=== PATIENT | female | born 1960 | race Caucasian/White ===

== ENCOUNTER 2023-03-09 17:33 | Emergency (ER) | payer BC, SELFPAY ==
[2023-03-09] VITALS (7 sets, daily range): BP systolic 168–196; BP diastolic 69–96; PULSE 94–100; RESP 18–20; TEMP 36.7–36.9; O2SAT 94–98; BMI 31.7
--- NOTE | 2023-03-09 17:23 | HMH.EDGENADL ---
Discharge Plan Disposition Patient Disposition: Home, Self-Care Condition: Good Prescriptions Prescriptions: New tramadol 50 mg tablet 50 mg PO Q8H PRN (Reason: pain) Qty: 9 0RF prednisone 20 mg tablet 40 mg PO DAILY 5 Days Qty: 10 0RF lidocaine 5 % adhesive patch,medicated 1 patch topical DAILY Qty: 30 0RF Rx Instructions: leave on most painful area for up to 12 hrs No Action atorvastatin 80 mg tablet 80 mg PO DAILY carvedilol 12.5 mg tablet 12.5 mg PO BID glipizide 10 mg tablet extended release 24hr 10 mg PO BID promethazine 25 mg tablet See Rx Instructions .ROUTE .COMPLEX Rx Instructions: 25 mg orally losartan 25 mg tablet 25 mg PO DAILY folic acid 1 mg tablet 1 mg PO DAILY Activity Restrictions/Add. Instructions Additional Instructions/Restrictions: Follow-up with your PCP as soon as possible for further evaluation and diagnostics. I recommend physical therapy for a week I will put you off work for 3 days to start. Clinical Impressions Clinical Impression: Sciatica neuralgia Stand Alone Forms Stand Alone Forms: Work/School Release Discharge ED Provider: Hans Millard General Adult HPI <JACK Guidry - Last Filed: 03/09/23 22:31> General Chief complaint: PAIN Stated complaint: Left Leg Pain Time Seen by Provider: 03/09/23 17:23 History of Present Illness HPI narrative: She reports acute onset around proximately 1530 of left gluteal pain that is now involving the entirety of her left lower extremity. Patient injured her back in December with similar symptoms however it is worse today. Patient denies any trauma and occurred when attempting to sit down after a long day at work. 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 Patient denies chest pain shortness of breath fever chills hemoptysis hematochezia melena nausea vomit diarrhea saddle anesthesia loss of bowel or bladder function. Patient reports pain initially to the lower back pain radiation down the left leg. Related Data Home Medications Medication Instructions Recorded Confirmed atorvastatin 80 mg tablet 80 mg PO DAILY 03/09/23 03/09/23 carvedilol 12.5 mg tablet 12.5 mg PO BID 03/09/23 03/09/23 folic acid 1 mg tablet 1 mg PO DAILY 03/09/23 03/09/23 glipizide 10 mg tablet, extended 10 mg PO BID 03/09/23 03/09/23 release 24 hr losartan 25 mg tablet 25 mg PO DAILY 03/09/23 03/09/23 promethazine 25 mg tablet See Rx Instructions .Route .COMPLEX 03/09/23 03/09/23 Previous Rx's Medication Instructions Recorded lidocaine 5 % topical patch 1 patch topical DAILY #30 ea 03/09/23 prednisone 20 mg tablet 40 mg PO DAILY 5 days #10 tabs 03/09/23 tramadol 50 mg tablet 50 mg PO Q8H PRN pain #9 tabs 03/09/23 Allergies Allergy/AdvReac Type Severity Reaction Status Date / Time hydrocodone Allergy Verified 03/09/23 17:56 PFSH <JACK Guidry - Last Filed: 03/09/23 22:31> PFS Disclaimer: The information contained in this section may have been updated after the patient was seen, as this information can be updated by other users. Social History (Updated 03/09/23 @ 22:31 by JACK Guidry) Smoking Status: Current every day smoker alcohol intake: never current occupational status: employed Travel in the last 8 weeks: None <JACK Guidry - Last Filed: 03/09/23 22:31> ROS Obtained: Yes Systems reviewed as appropriate & no additional complaints except as documented Physical Exam <JACK Guidry - Last Filed: 03/09/23 22:31> General General appearance: alert and in no apparent distress Comment: Patient is well-nourished well-developed 63-year-old female who otherwise in no acute distress Head Head exam: atraumatic, normocephalic and normal inspection Eye Eye exam: Present normal appearance, PERRL and EOMI ENT ENT exam: Present normal exam, normal oropharynx and mucous membranes moist Neck Neck exam: Present normal inspection, full ROM and trachea midline Chest Chest inspection: Present normal inspection and symmetric chest wall rise; Absent tenderness Respiratory Respiratory exam: Present normal lung sounds bilaterally; Absent respiratory distress Cardiovascular Cardiovascular exam: Present regular rate and normal rhythm; Absent JVD Abdominal Exam Abdominal exam: Present soft and normal bowel sounds; Absent distention, tenderness or guarding Extremities Exam Extremities exam: Present normal inspection, full ROM (Of the unaffected extremities) and normal capillary refill; Absent calf tenderness Expanded Lower Extremity Exam Left: Hip/Pelvis exam: Present pelvis stable, pain on hip/pelvis palpation and hip pain on leg movement; Absent full ROM, tenderness, swelling, ecchymosis, deformity, dislocation, external rotation, internal rotation, shortening of leg, erythema, crepitus, laceration or abrasion Upper leg exam: Present normal inspection and tenderness (Posteriorly); Absent full ROM, swelling, abrasion, laceration, ecchymosis, deformity, crepitus, dislocation or erythema Leg image: 1. Knee exam: Present normal inspection and tenderness (Posteriorly); Absent full ROM, swelling, abrasion, laceration, ecchymosis, deformity, crepitus, dislocation, erythema, effusion, anterior drawer sign, posterior draw sign, pain with valgus, laxity with valgus, pain with varus, laxity with varus or knee extension intact (Too painful to extend) Lower leg exam: Present normal inspection, full ROM and Achilles tendon intact; Absent tenderness, swelling, abrasion, laceration, ecchymosis, deformity, crepitus, dislocation, erythema, palpable cord or Homans' sign Ankle exam: Present normal inspection and full ROM; Absent tenderness, swelling, abrasion, laceration, ecchymosis, deformity, crepitus, dislocation, erythema, tenderness over talofibular lig or anterior draw sign Foot/toe exam: Present normal inspection and full ROM Neurovascular/Tendon exam: Present normal capillary refill and normal fine/light touch; Absent pulse deficit, motor deficit, sensory deficit, tendon deficit, foot drop or significant pain with passive ROM of distal joint Gait: not tested/not observed Back Exam Back exam: Present normal inspection; Absent tenderness Neurological Exam Neurological exam: Present alert and oriented X3 Psychiatric Psychiatric exam: Present normal affect and normal mood Skin Skin exam: Present warm, dry, intact and normal color Medical Decision Making <JACK Guidry - Last Filed: 03/09/23 22:31> Medical Records Medical records reviewed: Yes I reviewed the patient's medical records. Domingo Inquiry Pt receiving controlled substance: No Domingo was queried for this patient: No Vital Signs: 03/09/23 17:30 03/09/23 18:00 03/09/23 18:21 Temperature 98.1 F Temperature Source Oral Pulse Rate 96 H 99 H Pulse Rate [Right] 96 H Respiratory Rate 18 20 20 Blood Pressure 182/84 H 196/87 H Blood Pressure [Right Arm] 168/69 H Blood Pressure Mean 134 123 Blood Pressure Mean [Right Arm] 102 Blood Pressure Source Blood Pressure Position 02 Sat by Pulse Oximetry 98 95 96 Oxygen Delivery Method Room Air 03/09/23 18:41 03/09/23 19:01 03/09/23 19:21 Temperature Temperature Source Pulse Rate 94 H 96 H 94 H Pulse Rate [Right] Respiratory Rate Blood Pressure 190/95 H 193/96 H 182/96 H Blood Pressure [Right Arm] Blood Pressure Mean Blood Pressure Mean [Right Arm] Blood Pressure Source Blood Pressure Position 02 Sat by Pulse Oximetry 95 94 L 96 Oxygen Delivery Method 03/09/23 19:53 Temperature 98.4 F Temperature Source Oral Pulse Rate 100 H Pulse Rate [Right] Respiratory Rate 20 Blood Pressure 182/96 H Blood Pressure [Right Arm] Blood Pressure Mean Blood Pressure Mean [Right Arm] Blood Pressure Source Automatic Cuff Blood Pressure Position Sitting 02 Sat by Pulse Oximetry Oxygen Delivery Method Room Air Lab Data Lab results reviewed: Yes I reviewed the patient's lab results. Orders (Tests/Meds): ED MEDICATIONS Discontinued Medications Generic Name Dose Route Start Last Admin Trade Name Freq PRN Reason Stop Dose Admin Dexamethasone Sodium Phosphate 10 mg 03/09/23 17:36 03/09/23 18:20 Dexamethasone 4mg/Ml 1ml Vial IM 03/09/23 17:37 10 mg ONCE ONE Administration Ketorolac Tromethamine 15 mg 03/09/23 17:31 03/09/23 18:20 Ketorolac 30mg/Ml Vial IM 03/09/23 17:32 15 mg ONCE ONE Administration Lidocaine 1 each 03/09/23 17:31 03/09/23 18:20 Lidocaine 5% Transdermal Patch TP 03/09/23 17:32 1 each ONCE ONE Administration Oxycodone HCl 5 mg 03/09/23 19:43 03/09/23 19:46 Oxycodone 5mg Immediate Release Tablet PO 03/09/23 19:44 5 mg ONCE ONE Administration Medical Decision Narrative: In summary patient is a 83-year-old female who presents to the emergency department for evaluation of left leg radiculopathy.. Patient is hemodynamic stable and afebrile on arrival. Physical exam consistent with sciatica without focal neurologic deficits. Differential diagnosis includes sciatica, degenerative disc disease. Initial workup will be conducted with steroids and nonsteroidals and lidocaine patch. Initial interventions include IM Toradol and IM Decadron and lidocaine patch. Patient already has established physical therapy and will be referred back for ongoing care. Upon repeat evaluation patient has had interval decrease in her numbness and is now able to sit on the edge of the bed comfortably but does still have some sciatica spasm. Given this discharged home with a prednisone burst dose prescription, prescription for tramadol and instructions to follow-up with PCP and PT tomorrow <Hans Millard MD - Last Filed: 03/09/23 23:52> Vital Signs: 03/09/23 17:30 03/09/23 18:00 03/09/23 18:21 Temperature 98.1 F Temperature Source Oral Pulse Rate 96 H 99 H Pulse Rate [Right] 96 H Respiratory Rate 18 20 20 Blood Pressure 182/84 H 196/87 H Blood Pressure [Right Arm] 168/69 H Blood Pressure Mean 134 123 Blood Pressure Mean [Right Arm] 102 Blood Pressure Source Blood Pressure Position 02 Sat by Pulse Oximetry 98 95 96 Oxygen Delivery Method Room Air 03/09/23 18:41 03/09/23 19:01 03/09/23 19:21 Temperature Temperature Source Pulse Rate 94 H 96 H 94 H Pulse Rate [Right] Respiratory Rate Blood Pressure 190/95 H 193/96 H 182/96 H Blood Pressure [Right Arm] Blood Pressure Mean Blood Pressure Mean [Right Arm] Blood Pressure Source Blood Pressure Position 02 Sat by Pulse Oximetry 95 94 L 96 Oxygen Delivery Method 03/09/23 19:53 Temperature 98.4 F Temperature Source Oral Pulse Rate 100 H Pulse Rate [Right] Respiratory Rate 20 Blood Pressure 182/96 H Blood Pressure [Right Arm] Blood Pressure Mean Blood Pressure Mean [Right Arm] Blood Pressure Source Automatic Cuff Blood Pressure Position Sitting 02 Sat by Pulse Oximetry Oxygen Delivery Method Room Air Orders (Tests/Meds): ED MEDICATIONS Discontinued Medications Generic Name Dose Route Start Last Admin Trade Name Rafaela PRN Reason Stop Dose Admin Dexamethasone Sodium Phosphate 10 mg 03/09/23 17:36 03/09/23 18:20 Dexamethasone 4mg/Ml 1ml Vial IM 03/09/23 17:37 10 mg ONCE ONE Administration Ketorolac Tromethamine 15 mg 03/09/23 17:31 03/09/23 18:20 Ketorolac 30mg/Ml Vial IM 03/09/23 17:32 15 mg ONCE ONE Administration Lidocaine 1 each 03/09/23 17:31 03/09/23 18:20 Lidocaine 5% Transdermal Patch TP 03/09/23 17:32 1 each ONCE ONE Administration Oxycodone HCl 5 mg 03/09/23 19:43 03/09/23 19:46 Oxycodone 5mg Immediate Release Tablet PO 03/09/23 19:44 5 mg ONCE ONE Administration Medical Decision Narrative: In summary patient is a 83-year-old female who presents to the emergency department for evaluation of left leg radiculopathy.. Patient is hemodynamic stable and afebrile on arrival. Physical exam consistent with sciatica without focal neurologic deficits. Differential diagnosis includes sciatica, degenerative disc disease. Initial workup will be conducted with steroids and nonsteroidals and lidocaine patch. Initial interventions include IM Toradol and IM Decadron and lidocaine patch. Patient already has established physical therapy and will be referred back for ongoing care. Upon repeat evaluation patient has had interval decrease in her numbness and is now able to sit on the edge of the bed comfortably but does still have some sciatica spasm. Given this discharged home with a prednisone burst dose prescription, prescription for tramadol and instructions to follow-up with PCP and PT tomorrow [place]: Given patient's severe symptoms and inability to sit still, get comfortable despite steroids and lidocaine patch, oxycodone given here in the emergency department 1 dose to prevent admission. And patient sent home with tramadol. Patient agreeable to this plan and outpatient with family doctor to schedule physical therapy. I was consulted by the ELIGIO, and we discussed the complexity of the problems being addressed. I approved the treatment and management plan for this patient?s care in the Emergency Department, thus performing a substantive portion of the medical decision making. Hans Millard MD Critical Care <JACK Guidry - Last Filed: 03/09/23 22:31> Critical Care Time Critical Care Time: No
[2023-03-09] MEDS: KETOROLAC 30MG/ML VIAL 15 MG IM (18:20)
[2023-03-09] MEDS: DEXAMETHASONE 4MG/ML 1ML VIAL 10 MG IM (18:20)
[2023-03-09] MEDS: LIDOCAINE 5% TRANSDERMAL PATCH 1 EACH TP (18:20)
[2023-03-09] MEDS: OXYCODONE 5MG IMMEDIATE RELEASE TABLET 5 MG PO (19:46)
--- NOTE | 2023-03-25 06:25 | PC.NURSE ---
pt chart accessed for facesheet for [facility]
== END 2023-03-09 19:55 | disposition home or self-care (01) ==
PROVIDERS: Emergency Provider Emergency Medicine; PCP Family Medicine
DX: M54.32 Sciatica, left side (principal); M79.605 Pain in left leg; F17.200 Nicotine dependence, unspecified, uncomplicated
CPT/HCPCS: 96372; 99284